=== PATIENT | female | born 1980 | race Caucasian/White ===

== ENCOUNTER 2016-08-30 06:07 | Inpatient (IN) | payer OTHER ==
[2016-08-30] VITALS (20 sets, daily range): BP systolic 107–133; BP diastolic 57–80; PULSE 62–80; RESP 10–19; Ht 167.6 cm; Wt 74.9 kg
[~2016-08-30] VITALS: Ht 167.6 cm; Wt 74.9 kg
[~2016-08-30 06:07] MED LIST: CEFAZOLIN 2 GM/50 ML (PMX) 50 ML IVPB ONE; LACTATED RINGER'S 1,000 ML IV* SCH
[2016-08-30] MEDS ORDERED: ROCURONIUM 50 MG INJ ONE (07:00)
[2016-08-30] MEDS ORDERED: SUCCINYLCHOLINE CHLORIDE 100 MG/5 ML SYG IV ONE (07:00)
--- NOTE | 2016-08-30 08:11 | HPN ---
Date/Time of Note Date/Time of Note DATE: 08/30/16 TIME: 08:11 Interval H&P Admission Note Pt. seen H&P reviewed: No system changes GALINA DILLARD MD Aug 30, 2016 08:11
[2016-08-30] MEDS ORDERED: LIDOCAINE 2% (SDV) 5 ML INJ ONE (08:23)
[2016-08-30] MEDS ORDERED: PROPOFOL 20 ML ONE (08:23)
[2016-08-30] MEDS ORDERED: MIDAZOLAM 1 MG/ML 2 ML INJ ONE (08:24)
[2016-08-30] MEDS ORDERED: FENTAnyl 50 MCG/ML VIAL ONE (08:28)
[2016-08-30] MEDS ORDERED: ONDANSETRON 4 MG INJ ONE (08:41)
[2016-08-30] MEDS ORDERED: FAMOTIDINE 20 MG INJ ONE (08:41)
[2016-08-30] MEDS ORDERED: DEXAMETHASONE 4 MG/ML 1 ML INJ ONE (08:41)
[2016-08-30] MEDS ORDERED: CEFAZOLIN 1 GM INJ ONE (08:41)
[2016-08-30] MEDS ORDERED: EPHEDrine SULFATE 50 MG/5 ML SYG ONE (09:05)
[2016-08-30] MEDS ORDERED: VASOPRESSIN 20 UNITS INJ ONE (09:14)
[2016-08-30] MEDS ORDERED: HYDROmorphONE 2 MG/ML SYG ONE (10:19)
[2016-08-30] MEDS ORDERED: HYDROmorphONE 1 MG/ML SYG IV PRN (10:30)
[2016-08-30] MEDS ORDERED: HYDROmorphONE (0.2 MG/ML) 10ML SYG IV ONE (10:54)
[2016-08-30] MEDS ORDERED: PROCHLORPERAZINE 10 MG INJ IV PRN (11:00)
[2016-08-30] MEDS ORDERED: ONDANSETRON 4 MG INJ IV PRN (11:00)
[2016-08-30] MEDS ORDERED: DIPHENHYDRAMINE 50 MG INJ IV PRN (11:00)
[2016-08-30] MEDS ORDERED: HYDROmorphONE (0.2 MG/ML) 10ML SYG IV PRN ×3 (11:00)
[2016-08-30] MEDS: LACTATED RINGER'S 1,000 ML IV SCH ×2 (11:00→17:31)
[2016-08-30] MEDS ORDERED: FENTAnyl 50 MCG/ML VIAL IV PRN ×3 (11:00)
[2016-08-30] MEDS ORDERED: MEPERIDINE 25 MG INJ IV PRN (11:00)
[2016-08-30] MEDS: IBUPROFEN 600 MG TAB PO SCH ×3 (14:44→23:57)
[2016-08-31] MEDS: LACTATED RINGER'S 1,000 ML IV SCH ×3 (02:51→14:43)
[2016-08-31] MEDS: IBUPROFEN 600 MG TAB PO SCH ×3 (05:40→17:03)
[2016-08-31 06:20] LABS: ADD SCAN DIFF NO
[2016-08-31 06:30] LABS: BASOPHILS % 0.4 % (0.0-2.0); EOSINOPHILS # 0.1 10^3/ul (0.0-0.5); EOSINOPHILS % 0.9 % (0.0-7.0); HEMATOCRIT 35.2 % (37.0-47.0); HEMOGLOBIN 11.3 g/dl (12.0-16.0); LYMPHOCYTES # 2.9 10^3/ul (0.8-2.9); LYMPHOCYTES % 38.5 % (15.0-51.0); MEAN CORPUSCULAR HEMOGLOBIN 29.6 pg (29.0-33.0); MEAN CORPUSCULAR HGB CONC 32.1 g/dl (32.0-37.0); MEAN CORPUSCULAR VOLUME 92.1 fl (82.0-101.0); MEAN PLATELET VOLUME 10.7 fl (7.4-10.4); MONOCYTE # 0.7 10^3/ul (0.3-0.9); MONOCYTES % 8.9 % (0.0-11.0); NEUTROPHIL # 3.8 10^3/ul (1.6-7.5); PLATELET COUNT 229 10^3/UL (140-415); RED BLOOD COUNT 3.82 10^6/ul (4.20-5.40); RED CELL DISTRIBUTION WIDTH 13.9 % (11.5-14.5); WHITE BLOOD COUNT 7.5 10^3/ul (4.8-10.8)
[2016-08-31 07:15] VITALS: BP 103/64; RESP 18
[2016-08-31 21:33] VITALS: BP 106/69; RESP 20
--- NOTE | 2016-08-31 22:12 | PN ---
Date/Time of Note Date/Time of Note DATE: 08/31/16 TIME: 22:08 OB Subjective Subjective Subjective c/o vaginal bleeding mostlikely menstral period tolerating pain well no other sx OB Objective Objective Objective vss afebrile abdomen soft wound dry HEENT: WNL Heart: Rhythm Normal Lungs: Clear, Equal Abdomen: WNL Extremities: Normal Reflexes: Normal OB Assessment/Plan Other Assessment: stable postop#1 Other plan: discharge home in am f/u at the office in one week GALINA DILLARD MD Aug 31, 2016 22:12
--- NOTE | 2016-08-31 22:18 | DS ---
Date/Time of Note Date/Time of Note DATE: 08/31/16 TIME: 22:12 Discharge Summary Admission/Discharge Info Admit Date/Time Aug 30, 2016 at 06:07 Discharge Date/Time [place] 2016 Final Diagnosis dyspareunia uterine fibroid/adenomyosis Patient Condition: Stable Procedures myomectomy Hx of Present Illness 35y.o who has been c/o dyspareunia for the last few yrs even prior to tummy tuck in 2014 u/s revealed uterine fiboid whichis small ,which less likely causing painful sex but thats the only positive finding, requested by patient to be removed. had myomectomy had unevenful course postoperatively Hospital Course tolerating diet well pain is controlled with motrin Home Meds No Active Prescriptions or Reported Meds Primary Care Provider Galina Dillard MD Time spent on discharge: < 30 minutes Pending Labs Laboratory Tests Test 08/31/16 05:20 08/31/16 05:39 White Blood Count 7.510^3/ul (4.8-10.8) Red Blood Count 3.8210^6/ul (4.20-5.40) Hemoglobin 11.3g/dl (12.0-16.0) Hematocrit 35.2% (37.0-47.0) Mean Corpuscular Volume 92.1fl (82.0-101.0) Mean Corpuscular Hemoglobin 29.6pg (29.0-33.0) Mean Corpuscular Hemoglobin Concent 32.1g/dl (32.0-37.0) Red Cell Distribution Width 13.9% (11.5-14.5) Platelet Count 63436^3/UL (140-415) Mean Platelet Volume 10.7fl (7.4-10.4) Neutrophils % 51.0% (39.0-77.0) Lymphocytes % 38.5% (15.0-51.0) Monocytes % 8.9% (0.0-11.0) Eosinophils % 0.9% (0.0-7.0) Basophils % 0.4% (0.0-2.0) Nucleated Red Blood Cells % 0.0/100WBC (0.0-0.0) Neutrophils # 3.810^3/ul (1.6-7.5) Lymphocytes # 2.910^3/ul (0.8-2.9) Monocytes # 0.710^3/ul (0.3-0.9) Eosinophils # 0.110^3/ul (0.0-0.5) Basophils # 0.010^3/ul (0.0-0.1) Nucleated Red Blood Cells # 0.010^3/ul (0.0-0.0) Lab Scanned Report REFERENCE [id number] GALINA DILLARD MD Aug 31, 2016 22:18
--- NOTE | 2016-08-31 22:25 | HP ---
Date/Time of Note Date/Time of Note DATE: 08/31/16 TIME: 22:19 Assessment/Plan VTE Prophylaxis VTE Prophylaxis Intervention: anti-embolic stocking Lines/Catheters IV C[facility]ter Type [facility]from [facility] Peripheral IV Urinary Cath still in place: No Assessment/Plan Chief Complaint/Hosp Course dyspareunia uterine fibroid Problems: Assessment/Plan myomectomy HPI/ROS Admit Date/Time Admit Date/Time Aug 30, 2016 at 06:07 Hx of Present Illness 35y.o who has been c/o dyspareunia for the last few yrs even prior to tummy tuck in 2014 u/s revealed uterine fiboid whichis small ,which less likely causing painful sex but thats the only positive finding, requested by patient to be removed. had myomectomy had unevenful course postoperatively ROS paainful sex Constitutional: improved, no complaints Eyes: no complaints ENT: no complaints Respiratory: no complaints Cardiovascular: no complaints Gastrointestinal: no complaints Genitourinary: no complaints, other (painful sex) Musculoskeletal: no complaints Skin: no complaints Neurologic: no complaints Endocrine: no complaints Lymphatic: no complaints Psychological: nl mood/affect, no complaints Immunologic: no complaints PMH/Family/Social Past Medical History Medical History: no pertinent history Past Surgical History Past Surgical Hx: other (tummy tuck) Family History Significant Family History: no pertinent family hx Social History Alcohol Use: none Smoking Status: Never smoker Drug Use: none Exam/Review of Systems Vital Signs Vitals Vital Signs Date Time Temp Pulse Resp B/P Pulse Ox O2 Delivery O2 Flow Rate FiO2 08/31/16 21:33 98.1 71 20 106/69 98 08/30/16 12:30 Nasal Cannula 08/30/16 12:08 3.0 Intake and Output 08/30/16 08/30/16 08/31/16 15:00 23:00 07:00 Intake Total 1600 ml 610 ml 1735 ml Output Total 550 ml 650 ml 3500 ml Balance 1050 ml -40 ml -1765 ml Exam Constitutional: alert, oriented, well developed Psych: nl mood/affect, no complaints Head: atraumatic, normocephalic Eyes: EOMI, PERRL, nl conjunctiva, nl lids, nl sclera ENMT: nl external ears & nose, nl lips & teeth, nl nasal mucosa & septum Neck: non-tender, supple Respiratory: clear to auscultation, normal air movement Cardiovascular: nl pulses, regular rate and rhythm Gastrointestinal: nl liver, spleen, non-tender, soft, surgical scars Musculoskeletal: nl extremities to inspection Extremities: normal pulses Neurological: ACCOUNT MANAGER II-XII intact, nl mental status, nl speech, nl strength Skin: nl turgor, No rash or lesions Lymph: nl lymph nodes Labs Result Diagram: 08/31/16 0520 Medications Medications Current Medications Hydromorphone HCl (Dilaudid) 0.5 mg Q4H PRN IV PAIN Last administered on 21:49; Admin Dose 0.5 MG; Start 08/30/16 at 10:30 Ibuprofen 600 mg 600 mg Q6 PO Last administered on 08/31/16 17:03; Admin Dose 600 MG; Start 08/30/16 at 12:00 Lactated Ringer's (Lr) 1,000 ml @ 125 mls/hr Q8H IV Last administered on 14:43; Admin Dose 125 MLS/HR; Start 08/30/16 at 11:00 GALINA DILLARD MD Aug 31, 2016 22:25
--- NOTE | 2016-08-31 22:27 | PD.PPDC ---
BOBBIN CLEANER Discharge Instruction Diagnosis Final Diagnosis: uterine myoma/adenomyosis Condition Patient Condition: Stable Diet Diet: Resume Regular Diet Activity/Restrictions Activity: May Shower Restrictions: No Exercising No Lifting Minimize Stair-climbing No Sexual Activity Nothing in the Vagina No [place] No Tampons, douche Wound/Drain Care Instructions Wound/Drain Care Instructions: Wash with soap and water Keep clean and dry Follow-up Follow-up with Physician: 1, Week/Weeks Return to clinic for ACCOUNTING SOFTWARE SPECIALIST Instructions: Fever greater than 101 Chills Worsening abdominal pain Excessive Vaginal Bleeding More than 2 pads per hour Unable to tolerate diet Surgical Instructions: Incisional Drainage Incisional Redness GALINA DILLARD MD Aug 31, 2016 22:27
[2016-08-31 23:08] LABS: ADD UMIC YES; URINE BILIRUBIN (Dip) NEGATIVE (NEGATIVE); URINE BLOOD (Dip) TRACE (NEGATIVE); URINE COLOR LT. YELLOW (YELLOW); URINE GLUCOSE (Dip) NEGATIVE (NEGATIVE); URINE KETONES (Dip) NEGATIVE (NEGATIVE); URINE LEUKOCYTE ESTERASE (Dip) NEGATIVE (NEGATIVE); URINE NITRITE (Dip) NEGATIVE (NEGATIVE); URINE TOTAL PROTEIN (Dip) NEGATIVE (NEGATIVE); URINE UROBILINOGEN (Dip) 0.2 E.U./dL (0.1-1.0)
[2016-08-31 23:28] LABS: BACTERIA,URINE MANY; SQUAMOUS EPITHELIAL CELL,UR RARE
[2016-09-01] MEDS: IBUPROFEN 600 MG TAB PO SCH ×2 (01:08→05:30)
[2016-09-01 08:11] VITALS: BP 114/70; RESP 18
--- NOTE | 2016-09-02 14:34 | OPR ---
DATE OF OPERATION: PREOPERATIVE DIAGNOSIS: Uterine leiomyomata and dyspareunia. POSTOPERATIVE DIAGNOSIS: Uterine leiomyomata and dyspareunia, possible adenomyosis. OPERATION PERFORMED: Myomectomy. ANESTHESIA: General. ANESTHESIOLOGIST: Refer to the chart. SURGEON: Deepika Devine MD OCCUPATIONAL THERAPY TEACHER: Zach Quezada MD DESCRIPTION OF PROCEDURE: Under appropriate induction of general anesthesia, the patient was placed in the frog position. Christy catheter was introduced into the bladder under sterile condition and r epositioned to supine. Abdominal wall was prepped and draped in usual aseptic manner. The patient had the tummy tuck in 2013 or 2014 ____ formed and the tummy tuck was very tight which was pulling b oth sides of the abdominal wall. A transverse incision was made along the previous incisional scar. Only the keloid was removed, but because of the tension previously existed and pulled the incision wide apart, and it appeared to be probably about 2 inches of width of the subcutaneous was exposed after the keloid was removed which was like 1 cm in width. Subcutaneous tissue incised layer by lay er until reached the fascia which was incised in the length of the incision, and a fascial flap was created by blunt and sharp dissection of tendinous attachment which was a little difficult because o f the previous surgical procedure. The rectus muscles split and peritoneal cavity were entered. Ut erus was explored. Both ovaries and tubes were normal. Uterus slightly increased, soft in consiste ncy, suggesting possibility of adenomyosis, but there was no grossly palpated fibroid noted, even in cluding the cervix. Searched for fibroid. There was no fibroid ____ was palpated, possibly due to adenomyosis, the ultrasound finding suggested. At this point, it was decided to do the uterine musc le biopsy, but there was a small subserosal fibroid noted on the anterior aspect of the uterus which never had been causing the severe dyspareunia as the patient described. The patient wants to keep the uterus even prior to surgical procedure was consented, and only the reason that hysterectomy con sent was obtained because of anytime myomectomy it was a routine procedure. At this point, did deci de not to do the biopsy since no reason to do the biopsy for clinically ____ change the management. So a small incision was made over the small fibroid which was removed and the defect was closed wit h 0 chromic catgut in continuous manner. No bleeder noted. The procedure was completed, and the ut erus was replaced in the abdominal cavity, and the parietal peritoneum was closed using 0 chromic ca tgut in continuous manner, muscle closed with 0 chromic catgut in continuous manner. Fascia closed with #1 Vicryl in continuous manner in 2 segments. Then we have to deal with this wide exposure of the subcutaneous tissue due to the tension from the tummy tuck. At this point, we decided to do the skin flap so it can be close. The skin was undermined, from the subcutaneous tissue, and created enough space, and after the subcutaneous tissue was irrigated with water, and this was appr oximated with 2-0 plain in continuous manner after adequate hemostasis secured, after the flap was f ormed and the skin closed with tamiko. Pressure dressing applied. Estimated blood loss approximat jacki 50 mL. The patient withstood procedure and was sent to recovery room in stable condition. Dictated By: DEEPIKA BRUNO/KELLEY Conf#: [id number] DID#: [id number]
== END 2016-09-01 08:40 | disposition home or self-care (01) | DRG 743 ==
LOC: REC 06:07 → PP2 12:54
PROVIDERS: ADMIT Obstetrics & Gynecology; ATTEND Obstetrics & Gynecology
PROC: 0UB90ZZ Excision of Uterus, Open Approach (ICD-10-PCS; principal; 2016-08-30 08:00)
DX: D25.9 Leiomyoma of uterus, unspecified (principal); E78.5 Hyperlipidemia, unspecified; N94.10 Unspecified dyspareunia
CPT/HCPCS: 81001; 85025; 86850; 86900; 86901; 86920; 87086; 88305; J0690; J1100; J1170; J2250; J2405; J3010; J7120; J7999